=== PATIENT | female | born 1935 | race Caucasian/White ===

== ENCOUNTER 2017-10-07 08:39 | Observation (INO) | payer OTHER ==
[~2017-10-07] VITALS: Ht 170.2 cm; Wt 68.7 kg
[~2017-10-07 08:39] MED LIST: ASPIRIN81 M2 PO; COUMADIN1 MG PO; Coumadin,Jantoven PO; DIGOX250 MCG PO; DIGOXIN125 MCG PO; ENALAPRIL MALEA10 MG PO; FUROSEMIDE40 MG PO; KLOR-CON M2020 MEQ PO; LOPRESSOR50 MG PO; ONE DAILY TABL1 EAC1 PO; PRAVASTATIN SOD40 MG PO
[2017-10-07 09:24] LABS: HEMATOCRIT 41.8 % (36.0-46.0); HEMOGLOBIN 13.4 G/DL (11.9-15.5); MCH 29.1 PG (29.0-34.0); MCHC 32.1 G/DL (30.0-36.0); MCV 90.9 FL (83-99); PLATELET COUNT 262 K/uL (156-360); RBC DIS.WIDTH-CV 14.4 % (11.8-14.6); WHITE BLOOD COUNT 6.1 K/uL (4.1-10.2)
[2017-10-07 09:39] LABS: CHLORIDE 107 mEq/L (99-109); POTASSIUM 3.6 mEq/L (3.7-5.4); SODIUM 143 mEq/L (136-147)
[2017-10-07 09:41] LABS: GLUCOSE 167 mg/dL (70-99)
[2017-10-07 09:45] LABS: CREATININE 1.2 mg/dL (0.6-1.3); GFR ESTIMATE (CALCULATED) 46 mL/min/
[2017-10-07 09:46] LABS: UREA NITROGEN (BUN) 27 mg/dL (9-23)
[2017-10-07 10:42] LABS: INTER. NORMALIZED RATIO 3.9
[2017-10-07 15:03] VITALS: BP 101/59; BP 86/62
[2017-10-07 19:24] LABS: TROP-I INTERPRETATION NEGATIVE; TROPONIN-I 0.05 ng/mL (0.0-0.30)
[2017-10-07 19:30] VITALS: BP 97/56
[2017-10-08 00:30] VITALS: BP 91/51
[2017-10-08 02:51] LABS: TROP-I INTERPRETATION NEGATIVE; TROPONIN-I 0.05 ng/mL (0.0-0.30)
[2017-10-08 04:30] VITALS: BP 92/64
[2017-10-08 05:41] LABS: INTER. NORMALIZED RATIO 3.5
[2017-10-08 05:57] LABS: CHLORIDE 105 MEQ/L (99-109); CREATININE 1.2 MG/DL (0.6-1.3); GFR ESTIMATE (CALCULATED) 46 mL/min/; POTASSIUM 3.6 MEQ/L (3.7-5.4); SODIUM 145 MEQ/L (136-147); UREA NITROGEN (BUN) 28 mg/dL (9-23)
[2017-10-08 06:03] LABS: GLUCOSE 99 mg/dL (70-99)
[2017-10-08 07:20] VITALS: BP 92/58
[2017-10-08 11:24] VITALS: BP 109/71
== END 2017-10-08 15:41 | disposition home or self-care (01) ==
LOC: EME 08:39 → 5WEST 12:10 → EDOF 12:10 → ENRESERV 12:11 → 5WEST 14:57 → ENPENDDIS 10-08 → 5WEST 10-08 15:41
PROVIDERS: Internal Medicine; Physician Assistant
DX: I50.23 Acute on chronic systolic (congestive) heart failure (principal); I48.91 Unspecified atrial fibrillation; Z79.01 Long term (current) use of anticoagulants; Z95.810 Presence of automatic (implantable) cardiac defibrillator; I25.10 Atherosclerotic heart disease of native coronary artery without angina pectoris; E78.5 Hyperlipidemia, unspecified; M79.89 Other specified soft tissue disorders; I42.9 Cardiomyopathy, unspecified; R91.8 Other nonspecific abnormal finding of lung field; I27.20 Pulmonary hypertension, unspecified; Z88.2 Allergy status to sulfonamides
CPT/HCPCS: 71046; 80048; 83880; 84484; 85027; 85610; 93005; 93306; 99281; 99285; G0378; J1940